=== PATIENT | male | born 2000 | race Caucasian/White ===

== ENCOUNTER 2020-11-16 18:24 | Emergency (ER) | payer SELFPAY ==
[~2020-11-16] VITALS: Ht 182 cm; Wt 107.0 kg
[2020-11-16 18:35] VITALS: BP 140/103
--- NOTE | 2020-11-16 19:04 | ED Upper Extremity ---
General Chief Complaint: Laceration Stated Complaint: LEFT HAND INJURY/LACERATION Nursing Triage Note: PT TO RM 7 WITH A LAC TO THE SECOND DIGIT ON THE LT HAND FROM A CAN OF CORN. NOT UP TO DATE ON TETANUS BUT DOES NOT WANT A SHOT. Nursing Sepsis Screen: No Definite Risk Source: patient Exam Limitations: no limitations History of Present Illness Date Seen by Provider: November 16, 2020 Time Seen by Provider: 18:40 Initial Comments This 20-year-old young man presents to the emergency room with a 1 cm laceration on the finger pad of his left index finger. He sustained the injury from the edge of a can. Allergies and Home Medications Allergies Coded Allergies: No Known Drug Allergies (Unverified , 11/16/20) Home Medications No Active Prescriptions or Reported Meds Patient Home Medication List Home Medication List Reviewed: Yes Review of Systems Constitutional: no symptoms reported EENTM: no symptoms reported Musculoskeletal: no symptoms reported Skin: see HPI Psychiatric/Neurological: No Symptoms Reported Past [id number]-Dpzcek-Ewnzfa Hx Past Med/Social Hx: Reviewed Nursing Past Med/Soc Hx Patient Social History Alcohol Use: Denies Use Smoking Status: Never a Smoker Recent Infectious Disease Expo: No Recent Hopitalizations: No Seasonal Allergies Seasonal Allergies: Yes Past Medical History Surgeries: Yes (EAR) Respiratory: No Cardiac: No Neurological: No Genitourinary: No Gastrointestinal: No Musculoskeletal: No Endocrine: No HEENT: No Cancer: No Psychosocial: No Integumentary: No Physical Exam Vital Signs Vital Signs - First Documented 11/16/20 18:35 Temp 36.2 Pulse 94 Resp 20 B/P (MAP) 140/103 (115) Pulse Ox 99 O2 Delivery Room Air Capillary Refill : Less Than 3 Seconds Height, Weight, BMI Height: '" Weight: lbs. oz. kg; 32.00 BMI Method: General Appearance: WD/WN, mild distress (Anxious) HEENT: normal ENT inspection Respiratory: no respiratory distress Hand: Left (1 cm laceration on the left index finger pad extending into subcutaneous tissue) Neurologic/Psychiatric: hand kiss setter II-XII nml as tested, no motor/sensory deficits, alert, oriented x 3, other (Anxious) Skin: normal color, warm/dry, other (1 cm left index finger laceration) Procedures/Interventions Other Closure Supply: Wound Adhesive Progress/Results/Core Measures Results/Orders Vital Signs/I&O 11/16/20 18:35 Temp 36.2 Pulse 94 Resp 20 B/P (MAP) 140/103 (115) Pulse Ox 99 O2 Delivery Room Air Blood Pressure Mean: 115 Progress Progress Note : Progress Note Sutures were recommended due to the gaping skin on a fingertip that will likely contact lots of surfaces and experience much range of motion. Patient declined as he did not want to experience any needle sticks. I also strongly advised a tetanus booster. Patient declined. Departure Impression Primary Impression: Laceration of finger Qualified Codes: S61.211A - Laceration without foreign body of left index finger without damage to nail, initial encounter Disposition: HOME, SELF-CARE Condition: Improved Departure-Patient Inst. Referrals: KOMAL LI MD (PCP) Primary Care Physician Patient Instructions: Laceration Repair With Glue (DC) Add. Discharge Instructions: Keep the wound clean and dry except for normal hand washing and showering. Avoid submerging for at least 1 week. Avoid contact with solvents such as alcohol, ballroom dancer, paints, adhesives, etc. for 1 week as they will loosen or soften the glue. Allow the glue to slough off naturally. If there are loose edges, they may be trimmed with fingernail clippers or small scissors. Do not peel the glue as this may reopen your wound. You may cover the wound with a Band-Aid to protect it. Try to avoid contacting the glue with the Band-Aid adhesive as this may weaken the glue. Monitor for signs of infection such as increasing pain, redness, swelling, puslike drainage, or fever. Please return to the emergency room promptly if you notice any of these symptoms. Call with questions or concerns. All discharge instructions reviewed with patient and/or family. Voiced understanding. Scripts No Active Prescriptions or Reported Meds SUZIE CH MD November 16, 2020 19:04
== END 2020-11-16 19:09 | disposition home or self-care (01) ==
LOC: EDUNIT# 18:24 → ER 18:29
DX: S61.211A Laceration without foreign body of left index finger without damage to nail, initial encounter (principal); W25.XXXA Contact with sharp glass, initial encounter